=== PATIENT | male | born 1950 | race Caucasian/White ===

== ENCOUNTER → 2020-11-03 11:08 | Outpatient (CLI) | payer MEDICARE, OTHER, SELFPAY ==
[2020-11-03 11:36] LABS: COVID19 -Nasal RAPID Negative (Negative)
== END ==
PROVIDERS: PCP Internal Medicine; Visit Provider Surgery
DX: Z01.812 Encounter for preprocedural laboratory examination (principal); Z20.828 Contact with and (suspected) exposure to other viral communicable diseases
CPT/HCPCS: 87635; C9803

== ENCOUNTER 2020-11-06 09:12 | Day surgery (SDC) | payer MEDICARE, OTHER, SELFPAY ==
[2020-11-06] VITALS (10 sets, daily range): BP systolic 111–130; BP diastolic 59–71; PULSE 53–62; RESP 10–16; TEMP 36.1–36.4; O2SAT 98–99; BMI 29.2
--- NOTE | 2020-11-06 | PATH_ITS ---
[facility] Accession Number: [id number] . 01 Material submitted: . colon - ASCENDING COLON POLYPS . 02 Diagnosis: Ascending Colon, Polyps: Fragments of sessile serrated adenoma, fragments of tubular adenoma, and fragments of colonic mucosa with prominent benign lymphoid aggregates. MRV 11/08/2020 1208 Local . 02 Electronically signed: . Wicho Chacko MD, PhD, Pathologist NPI- [id number] . 01 Gross description: . ASCENDING COLON POLYPS: Received in formalin are multiple fragment(s) of johnson, soft tissue measuring 1.2 x 1.0 x 0.3 cm in aggregate submitted entirely in 1 cassette(s) /QBJ 11/07/2020 0817 Local . 02 Pathologist provided ICD-10: D12.2 . 02 CPT . 109076 Performed at: 01 [facility] [address], [place], [place] [id number] MD Alon Starkey MD Phone: [phone] [facility]formed at: [facility] [address] [place], [place] [id number] MD Elva Carrera MD Phone: [phone]
[2020-11-06] MEDS: LACTATED RINGERS 1,000 ML 200 ML IV ×2 (09:58→11:29)
--- NOTE | 2020-11-06 10:11 | PM.PREOP ---
Pre-operative Note COVID-19 COVID-19 status: Negative Interval Note History & Physical reviewed/Exam performed by Physician: Yes Changes to H&P: No ASA Class (for procedural sedation): II
[2020-11-06] MEDS: MIDAZOLAM 5 MG/5 ML VIAL IV (10:52)
[2020-11-06] MEDS: fentaNYL 250 MCG/5 ML INJ IV (10:52)
--- NOTE | 2020-11-06 11:27 | PM.OP.ENDO ---
Operative Date/Time/Diagnoses Date of procedure: 11/06/20 Time of procedure: 11:28 Pre-op diagnosis: positive fecal immunochemical test Post-op diagnosis: other (colonic polyps (ascending colon x 3)) Procedure & Clinicians Study performed: Colonoscopy Polypectomy Same procedure as scheduled: Yes Indications: 70-year-old man with a positive fecal immunochemical test here for colonoscopy Surgeon: Andry Fleming Procedure Notes Procedure in detail: Medications: Conscious sedation using 6mg IV midazolam and 200mcg IV of fentanyl The history and physical was performed/updated and the patient is ASA class is 1. The procedure was discussed in detail with the patient. Potential risks complications including infection, bleeding, missed diagnosis, perforation, need for surgery, and were explained. Their questions were answered and informed consent was obtained. Patient was brought to the procedure room and placed standard monitoring equipment. The patient's vital signs were monitored continuously throughout the entire procedure. Prior to starting time-out was performed. The patient was placed in the left lateral recumbent position. Procedural sedation was administered. Examination began with a thorough inspection of the perianal area there was no evidence of fissures, fistulae, external hemorrhoids or cutaneous malignancy. Presence of external skin tags. The colonoscopy scope was then placed into the anal canal and was advanced to the cecum, which was identified by the ileocecal valve, the appendiceal orifice and the confluence of the taenia. The scope was then slowly withdrawn examining colon thoroughly in all directions, irrigating it of any residual stool. Three less than 1 cm polyps in the ascending colon removed with a combination of snare and biopsy forceps. Sigmoid diverticulosis The patient tolerated the procedure well. They will be discharged once criteria are met. The prep was of good/excellent quality. The withdrawl time was 32 minutes. The sedation time was 59 minutes. Specimen(s): other (ascending colonic polyps x 3) Complications: none Impression: colonic polyps Post-procedure Recommendations: Colonscopy in 5 years Disposition: same day surgery
== END 2020-11-06 12:21 | disposition home or self-care (01) ==
PROVIDERS: PCP Internal Medicine; Referring Provider Internal Medicine; Visit Provider Surgery
PROC: 0DJD8ZZ Inspection of Lower Intestinal Tract, Via Natural or Artificial Opening Endoscopic (ICD-10-PCS; CPT 45378; principal; 2020-11-06 10:45)
DX: K57.30 Diverticulosis of large intestine without perforation or abscess without bleeding (principal); D12.2 Benign neoplasm of ascending colon
CPT/HCPCS: 45385; 45380; 99152; 99153; J2250; J3010

== ENCOUNTER → 2022-06-24 08:27 | Outpatient (CLI) | payer MEDICARE, OTHER, SELFPAY ==
--- NOTE | 2022-06-24 | DI.RAD.S_ITS ---
PROCEDURE: FL UPPER GI W AIR INDICATIONS: Gastro-esophageal reflux disease w/o esophagitis COMPARISON: None. FINDINGS: KUB: Preprocedural oil scout film demonstrates a non-obstructive bowel gas pattern. No suspicious abdominal calcifications. Esophagus: Esophageal mucosa is unremarkable on air-contrast views. On single-contrast views, there is normal esophageal peristalsis. No strictures, extrinsic mass effects, or diverticula. No definite hiatal hernia visualized. Gastroesophageal reflux to the level of the lower esophagus was observed with water siphon maneuver. There is normal transit of a calibrated barium tablet through the esophagus. Stomach: The stomach is normally distensible, with normal rugal fold thickness. No mucosal masses or ulcers. Pylorus and duodenal bulb appear normal in morphology. Duodenal folds are normal in thickness as well. IMPRESSION: 1. No definite hiatal hernia visualized. 2. Gastroesophageal reflux was observed during the exam. 3. No esophageal stricture visualized. 4. Esophageal motility appears within normal limits. Dictated by: Abdi Rivero M.D. on 06/24/2022 at 10:23 Approved by: Abdi Rivero M.D. on 06/24/2022 at 10:32
== END ==
PROVIDERS: PCP Internal Medicine; Referring Provider Physician Assistant; Visit Provider Physician Assistant
DX: K21.9 Gastro-esophageal reflux disease without esophagitis (principal)
CPT/HCPCS: 74246

== ENCOUNTER → 2023-10-16 11:30 | Outpatient (CLI) | payer MEDICARE, OTHER, SELFPAY ==
[2023-10-16 12:48] LABS: Add Manual Diff / Slide Review NO; Basophils Absolute Auto 0 /uL (0-100); Basophils Percent Auto 0.6 % (0-2); Eosinophils Absolute Auto 100 /uL (0-450); Eosinophils Percent Auto 1.5 % (2-4); Hematocrit 42.5 % (41-53); Hemoglobin 14.8 g/dL (13.5-17.5); Lymphocytes Absolute Auto 1500 /uL (1100-4500); Lymphocytes Percent Auto 24.5 % (25-40); Mean Corpuscular HGB Conc 34.7 % (30-36); Mean Corpuscular Hemoglobin 31.5 PG (26-34); Mean Corpuscular Volume 90.9 fL (80-100); Monocytes Absolute Auto 400 /uL (0-900); Monocytes Percent Auto 6.4 % (3-14); Neutrophils Absolute Auto 4100 /uL (1500-7000); Platelet Count 188 X10^3/uL (150-400); Red Blood Cell Count 4.68 X10^6/uL (4.5-5.9); Red Cell Distribution Width 13.9 % (11.6-14.8); White Blood Cell Count 6.1 X10^3/uL (4.5-11.0)
[2023-10-16 13:08] LABS: BUN Creatinine Ratio 32.1 (6-22); Blood Urea Nitrogen 25 mg/dL (9-20); Calcium 9.5 mg/dL (8.4-10.2); Carbon Dioxide 29 mmol/L (22-32); Chloride 104 mmol/L (98-107); Estimated Glomerular Filt Rate > 60 mL/min (>60); Glucose 89 mg/dL (80-110); HEMOLYSIS 15 (0-50); Potassium 4.1 mmol/L (3.4-5.1); Sodium 139 mmol/L (137-145)
== END ==
PROVIDERS: PCP Internal Medicine; Referring Provider Orthopaedic Surgery; Visit Provider Orthopaedic Surgery
DX: Z01.818 Encounter for other preprocedural examination (principal); Z01.812 Encounter for preprocedural laboratory examination
CPT/HCPCS: 36415; 80048; 85025; 93005; 93010

== ENCOUNTER → 2023-12-03 09:49 | Outpatient (CLI) | payer MEDICARE, OTHER, SELFPAY ==
--- NOTE | 2023-12-03 09:52 | DI.CT.S_ITS ---
PROCEDURE: CT UE LT WO CON INDICATIONS: PRIMARY OSTEOARTHRITIS, LEFT SHOULDER TECHNIQUE: Noncontrast 1-1.5 mm thick sections acquired from the acromioclavicular joint to the inferior scapula, with coronal and sagittal reformatting. COMPARISON: [facility] [place], CR, XR SHOULDER 2+ VIEWS LEFT, 07/17/2023, 13:14. FINDINGS: Image quality: Excellent. Bones: No acute osseous fracture or dislocation. High-grade joint space narrowing is seen at the glenohumeral joint with subchondral sclerosis, marginal osteophyte formation, and mild remodeling of the articular surfaces. There is no significant glenoid retroversion or anteversion. Moderate degenerative changes are seen at the acromioclavicular joint. The included ribs are intact. Degenerative changes are seen in the included spine. Soft tissues: No significant glenohumeral effusion. There is grade 3-4 fatty infiltration of the teres minor muscle is most likely related to chronic denervation changes. No mass is seen along the course of the axillary nerve. The remaining rotator cuff muscles are normal in bulk. The tendons, ligaments, articular cartilages, and labrum are not well evaluated on standard CT. The musculature surrounding the shoulder is otherwise normal in bulk. The included portions of the lung are clear. IMPRESSION: 1. Moderate to severe glenohumeral osteoarthrosis as described in the body of the report. No significant glenoid retroversion or anteversion is seen. 2. Moderate acromioclavicular joint osteoarthrosis. 3. Grade 3-4 fatty infiltration of the teres minor muscle is most likely related to chronic denervation changes. No mass is seen along the course of the axillary nerve. Approved by: Abdi Granados M.D. on 12/03/2023 at 16:11
== END ==
PROVIDERS: PCP Internal Medicine; Referring Provider Orthopaedic Surgery; Visit Provider Orthopaedic Surgery
DX: M19.012 Primary osteoarthritis, left shoulder (principal)
CPT/HCPCS: 73200

== ENCOUNTER 2023-12-18 08:13 | Day surgery (SDC) | payer MEDICARE, OTHER, SELFPAY ==
[2023-12-09 13:00] VITALS: BMI 29.9
[2023-12-18] VITALS (7 sets, daily range): BP systolic 119–132; BP diastolic 64–76; PULSE 63–81; RESP 13–16; TEMP 36.2–36.7; O2SAT 95–98; BMI 29.9
--- NOTE | 2023-12-18 06:00 | DI.RAD.S_ITS ---
PROCEDURE: XR SHOULDER LT 1V INDICATIONS: TSA TECHNIQUE: 1 views of the shoulder were acquired. COMPARISON: [facility] [place], CR, XR SHOULDER 2+ VIEWS LEFT, 07/17/2023, 13:14. FINDINGS: Bones: No fractures or dislocations. Expected postoperative appearance of left shoulder arthroplasty. No suspicious bony lesions. Visualized ribs appear intact. Soft tissues: Overlying postsurgical changes are noted. IMPRESSION: Expected postoperative appearance of left shoulder arthroplasty. Dictated by: Tyrone Lambert M.D. on 12/18/2023 at 13:26 Approved by: Tyrone Lambert M.D. on 12/18/2023 at 13:27
[2023-12-18] MEDS: ACETAMINOPHEN 325 MG TABLET 975 MG PO (09:24)
--- NOTE | 2023-12-18 10:00 | PM.HP.1 ---
History of Present Illness History of Present Illness Date Patient Seen: 12/18/23 Time Patient Seen: 10:00 Chief complaint: L Total Shoulder Arthroplasty w/biceps tenodesis Narrative: This is a 73-year-old male who has several years of left shoulder pain recalcitrant to nonoperative modalities. Here today for left shoulder replacement. He denies any recent nausea, vomiting, diarrhea, fevers, chills or any other constitutional symptoms. No other changes in his symptoms. [facility] Medical History (Updated 12/09/23 @ 13:14 by Sola Millan RN) History of COVID-19 (~2021) Depression BCC (basal cell carcinoma) Chronic neck pain Chronic back pain Osteoarthritis GERD (gastroesophageal reflux disease) Hearing impaired Left forearm fracture (~2005) Fibromyalgia (~1989) ALYSSA on CPAP Surgical History (Updated 12/09/23 @ 13:09 by Sola Millan RN) Hx of tonsillectomy Hx of hernia repair (~1973) Family History Father Cancer Gallstones Social History marital status: household members: spouse occupational status: employed Smoking Status: Former smoker alcohol intake: current substance use type: does not use Meds Home Medications and Allergies Home Medications Medication Instructions Recorded Confirmed Type No Known Home Medications 10/18/20 12/09/23 History Allergies Allergy/AdvReac Type Severity Reaction Status Date / Time No Known Drug Allergies Allergy Verified 12/18/23 08:47 Review of Systems Review of Systems ROS: Yes All systems reviewed with the patient and are negative except as otherwise documented Exam Vital Signs (past 8 hours): - 12/18/23 08:59 Temperature 97.7 F Pulse Rate 74 Respiratory Rate 16 Blood Pressure 119/64 Pulse Oximetry 98 Oxygen Delivery Method Room Air Oxygen Delivery Method Room Air Narrative Exam Narrative: HEENT: Head atraumatic eyes anicteric moist mucous membranes Cardiovascular: Palpable peripheral pulses extremities are warm and well perfused Respiratory: Breathing comfortably on room air Psychiatric: Appropriate mood and affect Neuro: No acute deficits Musculoskeletal: Limited range of motion left shoulder forward elevation 130, external rotation 30 although I did not push him today due to known pathology. Sensation intact to light touch in median, radial, ulnar, axillary nerve distributions. 2+ radial pulse with brisk capillary refill less than 2 seconds. Able to give thumbs up, cross fingers, make A-OK sign. Assessment & Plan Assessment & Plan narrative: Assessment: 73-year-old male with left shoulder glenohumeral arthritis Plan: Plan for anatomic total shoulder arthroplasty today. Risks and benefits of surgery were discussed again including the risk of infection, damage to internal structures, bleeding, nerve injury, instability, need for revision surgery, blood clots, anesthesia and . No guarantees were made regarding outcomes. Patient expressed understanding and accepted these risks and wished to go forward with surgery and consent was signed.
[2023-12-18] MEDS: CEFAZOLIN 2 GM/100 ML PREMIX 100 ML IV (10:19)
[2023-12-18] MEDS: TRANEXAMIC ACID 1,000 MG VIAL 1000 MG INJ (10:25)
[2023-12-18] MEDS: ROPIVACAINE/EPI/CLONIDINE/KET 50 ML SYRINGE INJ (10:47)
--- NOTE | 2023-12-18 10:54 | SUR.OPER ---
Beach chair with Renettan/Kel shoulder positioner. Lower body on padded OR bed. Head in foam padded head cradle, secured with straps. Non-operative arm secured across patients chest and padded. Pillow under knees. Safety belt at thigh. Cloth tape over blanket over lower legs.
[2023-12-18] MEDS: LACTATED RINGERS 1,000 ML 42 ML IV (11:31)
[2023-12-18] MEDS: OXYCODONE IR 5 MG TABLET PO (12:59)
[2023-12-18] MEDS: ONDANSETRON 4 MG/2 ML INJ IV (12:59)
[2023-12-18] MEDS: GABAPENTIN 600 MG TABLET PO (13:17)
[2023-12-18] MEDS: KETOROLAC 30 MG/ML VIAL 15 MG IV (13:17)
--- NOTE | 2023-12-18 13:18 | PM.OP.1 ---
Operative Date/Time/Diagnoses Date of procedure: 12/18/23 Time of procedure: 13:18 Pre-op diagnosis: Left glenohumeral arthritis Post-op diagnosis: same Procedure & Clinicians Procedure: Anatomic left total shoulder arthroplasty Biceps tenodesis Same procedure as scheduled: Yes Indications: Indications: This is a 73-year-old male who has primary osteoarthritis of the glenohumeral joint. Symptoms have been present for years, insidious onset. Patient has failed conservative therapy including injections, physical therapy, anti-inflammatories and activity modification. After extensive discussion in clinic, they wished to go forward with surgery. Risks and benefits were described including the risk of infection, bleeding, damage to internal structures including nerves. We also discussed the risk of failure of surgery and the need for revision surgery as well as the risk of anesthesia. The patient expressed understanding with these risks and wished to go forward with surgery. Surgeon: Davide Castelan On Air Host: Aylin Jeffery Anesthesia Type: General Operative Notes Findings: Findings: Osteoarthritis of the glenoid and humeral head as noted on preoperative imaging and under direct visualization Closure Type: primary Specimen(s): none sent Prosthetic devices, grafts, tissues, transplants, or devices: [employer]plants CortiLoc Pegged Glenoid UHMWPE medium 40 Simpliciti Nucleus Size 2 Simpliciti CoCr head size 50 x 19 Estimated Blood Loss (mL): 50 Blood products transfused: none Procedure in detail: Operative note: Patient was seen in the preoperative holding unit. The correct left shoulder was identified and marked with my initials. Again we discussed the risks and benefits of surgery and they wished to go forward with surgery. The patient was brought back to the operating room and placed supine on the operating table. he underwent smooth endotracheal intubation. All prominences were padded and they were placed into the beach chair position. Intravenous antibiotics were given. The left shoulder was then prepped with the standard sterile preparation and draping. A time-out was then performed in my initials were again identified on the correct shoulder. 1 g of IV tranexamic acid was given. A standard deltopectoral incision was made. Skin flaps were made. The cephalic vein was identified and retracted laterally. This was protected throughout the remainder of the case. Sharp dissection was made along the deltoid, subacromial and subcoracoid space to release adhesions. The conjoined tendon was identified and the axillary nerve was palpated and continuous using the tug test. It was protected throughout the remainder of the case. A brown retractor was placed underneath the deltoid muscle and a darach retractor underneath the conjoint tendon. The anterior circumflex artery and associated veins on the lower border of the subscapularis were identified and tied off using 0-Vicryl. The biceps tendon was identified in the bicipital groove. This was released from its sheath, and taken from its origin on the glenoid and tied into the pectoralis tendon for a solid tenodesis. We then began a subscapularis peel. The subscapularis was tagged with an Ethibond suture. A 360 degree circumferential release of the subscapularis was performed with protection of the axillary nerve. The coracohumeral ligament was released at the base of the coracoid. The coracoacromial ligament was left intact. The shoulder was then dislocated. Osteophytes were removed using combination of rongeur and osteotome. The rotator cuff was noted to be intact. Using an oscillating saw a conservative humeral head cut was made using the patient's iroquois version. The head was measured and a guide for size 50 simpliciti humeral head was used to drill a central hole followed by impaction. Attention was then turned to the glenoid. After retracting the humeral head posteriorly, release of the capsule and labrum was performed. Central guidewire was placed. The glenoid was then reamed followed by a central drill over the guidewire. Guidewire was removed and using a guide, peripheral holes were drilled. At this point dilute Betadine wash was performed for 2 minutes. Medium viscosity cement was mixed and the drill holes were completely dried. An all polyethylene pegged glenoid was then selected, and cemented into the glenoid. Turning back to the humerus, the humeral head was delivered and 3 seperate [place]oupes were passed through drill holes through the lesser tuberosity into the bicipital groove. The nucleus was then impacted into the humerus and a size 50x19 stemless humeral head was placed. The shoulder was then reduced and again brought through range of motion and was felt to be stable. The interval was then closed using #2 ethibond. The subscapularis was then repaired using a modified racking hitch with niece loupes. The deltopectoral interval was then closed with #2 Ethibond. The skin was closed with 2-0 PDS and Monocryl followed by Aquacel dressing. Patient was awoken from anesthesia and brought back to the postoperative recovery unit without issue. They were placed into a sling. Assisting participation: This operation could not have been safely performed (without compromising the technical results or length of the procedure) without the assistance of a skilled regional vice president surgical sales. The regional vice president surgical sales was medically necessary for proper positioning, retraction and manipulation of instruments, proper exposure, graft prep, and manipulation of tissue. Complications: none Post-operative Condition: stable Disposition: PACU Plan for aftercare: Postoperative instructions: Sling to remain on for 6 weeks. No external rotation past neutral for 6 weeks. Okay for sling to come off for shower and gentle pendulum exercises. Okay to shower over the Aquacel dressing. If any water gets underneath the dressing, remove the dressing. First postoperative visit in 2 weeks.
== END 2023-12-18 14:19 | disposition home or self-care (01) ==
LOC: AC 14:06 → OR 12-19 06:11
PROVIDERS: PCP Internal Medicine; Referring Provider Orthopaedic Surgery; Visit Provider Orthopaedic Surgery
PROC: (CPT 23472; principal; 2023-12-18 10:15)
DX: M19.012 Primary osteoarthritis, left shoulder (principal); M25.712 Osteophyte, left shoulder
CPT/HCPCS: 23472; 73020; C1776; J0330; J0690; J1100; J1170; J1885; J2405; J2704; J3010

== ENCOUNTER → 2024-12-14 10:58 | Outpatient (CLI) | payer MEDICARE, OTHER, SELFPAY ==
--- NOTE | 2024-12-14 11:00 | DI.MRI.S_ITS ---
PROCEDURE: MR LUMBAR SPINE WO CON INDICATIONS: Radiculopathy TECHNIQUE: Noncontrast sagittal T1 spin echo and T2 fast spin echo, sagittal STIR through the thoracic and lumbar spines, with additional T2 fast spin echo images acquired through levels of compression fractures. COMPARISON: None. FINDINGS: Image quality: Excellent. Bones: There is normal lumbar spine alignment. Minimal 2-3 mm retrolisthesis at L1-2, L2-3 and L3-4 levels are seen. No acute vertebral body compression fracture. No marrow edema. T12-L1: Unremarkable. L1-2: Disc desiccation and loss of disc height. Diffuse disc bulge and bilateral facet arthrosis with mild central canal stenosis and moderate left-sided neural foraminal narrowing. L2-3: Disc desiccation and loss of disc height. Broad-based disc bulge and bilateral facet arthrosis with hypertrophy of ligamentum flavum. There is mild central canal stenosis and moderate bilateral neural foraminal narrowing. L3-4: There is disc desiccation and loss of disc height. Broad-based disc bulge and bilateral facet arthrosis with hypertrophy of ligamentum flavum causing [id number] central canal stenosis and moderate bilateral neural foraminal narrowing. L4-5: Broad-based disc bulge and bilateral facet arthrosis with hypertrophy of ligamentum flavum causing [id number] central canal stenosis and moderate to severe bilateral neural foraminal narrowing. Bulging disc likely contacting bilateral L4 nerve roots. L5-S1: Loss of disc height and disc signal. Broad-based disc bulge and bilateral facet arthrosis causing left worse than right bilateral neural foraminal narrowing, no significant central canal stenosis. Bulging disc likely contacting bilateral L5 nerve roots. Spinal cord: Visualized spinal cord is normal in size and signal. Conus medullaris is normal in location. Paraspinous soft tissues: No paravertebral masses. IMPRESSION: 1. No marrow edema. No acute vertebral body compression fracture. 2. Spondylitic changes throughout lumbar spine causing various degrees of central canal stenosis and bilateral neural foraminal narrowing as described above. Dictated by: Morgan Soler M.D. on 12/14/2024 at 13:05 Approved by: Morgan Soler M.D. on 12/14/2024 at 14:50
== END ==
LOC: MRI 10:59
PROVIDERS: PCP Internal Medicine
DX: M47.26 Other spondylosis with radiculopathy, lumbar region (principal); M47.27 Other spondylosis with radiculopathy, lumbosacral region; M48.061 Spinal stenosis, lumbar region without neurogenic claudication; M48.07 Spinal stenosis, lumbosacral region
CPT/HCPCS: 72148